=== PATIENT | male | born 1950 | race Caucasian/White ===

== ENCOUNTER 2016-12-27 20:30 | Emergency (ER) | payer MEDICARE, OTHER ==
[~2016-12-27 20:30] MED LIST: ADVAIR HFA1 AE1 IH; ASPIR-LOX325 MG PO; CARVEDILOL12.5 MG PO; CETIRIZINE PO; DOXYCYCLINE 10100 MG PO; FUROSEMIDE40 MG PO; LISINOPRIL10 MG PO; MUCINEX 60600 MG/TA1 PO; OMNICEF 300MG300 MG PO; PREDNISONE10 MG PO; SIMVASTATIN40 MG PO; SPIRIVA HANDIH18 MCG IH; TESSALON P100 MG/CAP PO; VIBRAMYCIN100 MG PO; ZESTRIL 5MG5 MG PO
[2016-12-27] MEDS ORDERED: COUMADIN 1MG1 MG/TAB (20:41)
[2016-12-27] MEDS ORDERED: ELIQUIS5 MG PO (20:42)
[2016-12-27 21:36] VITALS: BP 123/70
== END 2016-12-27 21:36 | disposition home or self-care (01) ==
LOC: ED 20:30
DX: S50.811A Abrasion of right forearm, initial encounter (principal); W50.4XXA Accidental scratch by another person, initial encounter; Z79.01 Long term (current) use of anticoagulants; I48.91 Unspecified atrial fibrillation

== ENCOUNTER 2018-04-11 17:37 | Emergency (ER) | payer MEDICARE, OTHER ==
[~2018-04-11] VITALS: Wt 72.8 kg
[~2018-04-11 17:37] MED LIST changes: +COUMADIN 1MG1 MG/TAB; +ELIQUIS5 MG PO
[2018-04-11] MEDS ORDERED: CARVEDILOL25 MG PO (17:54)
[2018-04-11] MEDS ORDERED: ZESTRIL10 M1 PO (17:56)
[2018-04-11] MEDS ORDERED: LOW DOSE ASPIRI81 MG PO (17:58)
[2018-04-11] MEDS ORDERED: PROAIR HFA0.09 MG/AC IH (17:58)
[2018-04-11 19:37] LABS: HEMATOCRIT 32.2 % (42.0-52.0); HEMOGLOBIN 10.7 g/dL (13.5-18.0); MEAN CELL VOLUME 77 fl (78-100); MEAN CORPUSCULAR HEMOGLOBIN 26 pg (27-31); MEAN CORPUSCULAR HGB CONC 33 g/dL (33-37); MEAN PLATELET VOLUME 9.5 fl (7.4-10.4); PLATELET COUNT 300 K/mm3 (130-400); RED BLOOD COUNT 4.16 M/mm3 (4.20-5.60); RED CELL DISTRIBUTION WIDTH 15.2 % (11.5-14.5); WHITE BLOOD COUNT 11.5 K/mm3 (4.8-10.8)
[2018-04-11 19:50] LABS: LYMPHOCYTE 9 % (20-51); MONOCYTE 7 % (3-10); NEUTROPHILS 82 % (42-75)
[2018-04-11 19:52] LABS: CALCIUM 8.7 mg/dL (8.4-10.2); POTASSIUM 4.3 mmol/L (3.6-5.0)
[2018-04-11 19:56] LABS: URINE APPEARANCE CLEAR; URINE BILIRUBIN NEGATIVE (NEGATIVE); URINE BLOOD NEGATIVE (NEGATIVE); URINE COLOR YELLOW; URINE GLUCOSE NEGATIVE (NEGATIVE); URINE KETONE NEGATIVE (NEGATIVE); URINE LEUKOCYTE ESTERASE TRACE (NEGATIVE); URINE NITRATE NEGATIVE (NEGATIVE); URINE PROTEIN(semi-quant) NEGATIVE (NEGATIVE); URINE UROBILINOGEN NORMAL (NORMAL)
[2018-04-11 19:57] LABS: URINE MUCUS PRESENT (NOT PRESENT)
[2018-04-11 20:05] VITALS: BP 142/69
== END 2018-04-11 20:05 | disposition short-term general hospital (02) ==
LOC: ED 17:37
PROVIDERS: Family Medicine
DX: S72.002A Fracture of unspecified part of neck of left femur, initial encounter for closed fracture (principal); S51.812A Laceration without foreign body of left forearm, initial encounter; W54.1XXA Struck by dog, initial encounter; Y92.009 Unspecified place in unspecified non-institutional (private) residence as the place of occurrence of the external cause; I48.91 Unspecified atrial fibrillation; I25.10 Atherosclerotic heart disease of native coronary artery without angina pectoris; I50.9 Heart failure, unspecified; J44.9 Chronic obstructive pulmonary disease, unspecified; I73.9 Peripheral vascular disease, unspecified; Z79.82 Long term (current) use of aspirin; Z79.899 Other long term (current) drug therapy; Z79.01 Long term (current) use of anticoagulants

== ENCOUNTER → 2018-05-15 | Outpatient (CLI) | payer MEDICARE, OTHER ==
[2018-05-01 12:13] VITALS: BP 169/88
[~2018-05-15] MED LIST changes: +ACETAMINOPHEN325 M1 PO; +B-1100 M1 PO; +BISACODYL10 M1 RC; +CARVEDILOL25 MG PO; +CHILDREN'S ASPI81 M1 PO; +CYCLOBENZAPRINE10 M1 PO; +FLOMAX0.4 MG PO; +FOLIC ACID1 MG PO; +HYDROCODONE BIT1 T44 PO; +IPRATROPIUM BROM3 M1 IH; +LANOXIN125 MCG PO; +LOW DOSE ASPIRI81 MG PO; +MULTIVITAMIN1 SGL PO; +OYSCO 500500 M1 PO; +PANTOPRAZOLE SO40 MG PO; +PREDNISONE20 M1 PO; +PROAIR HFA0.09 MG/AC IH; +SENOKOT NATURA8.6 MG PO; +VITAMIN C500 M7 PO; +ZESTRIL10 M1 PO
[2018-05-15 15:54] LABS: EOS # 0.4 (0.04-0.40); HEMATOCRIT 31.2 % (42.0-52.0); HEMOGLOBIN 10.1 g/dL (13.5-18.0); LYMPH# 0.9 (1.50-4.00); MEAN CELL VOLUME 79 fl (78-100); MEAN CORPUSCULAR HEMOGLOBIN 26 pg (27-31); MEAN CORPUSCULAR HGB CONC 32 g/dL (33-37); MEAN PLATELET VOLUME 9.9 fl (7.4-10.4); MONO # 0.8 (0.20-0.80); NEU # 5.4 (1.40-6.50); PLATELET COUNT 350 K/mm3 (130-400); RED BLOOD COUNT 3.94 M/mm3 (4.20-5.60); RED CELL DISTRIBUTION WIDTH 14.9 % (11.5-14.5); WHITE BLOOD COUNT 7.4 K/mm3 (4.8-10.8)
[2018-05-15 16:07] LABS: ALBUMIN 3.9 g/dL (3.5-5.0); CALCIUM 9.3 mg/dL (8.4-10.2); POTASSIUM 4.5 mmol/L (3.6-5.0); TOTAL BILIRUBIN 0.6 mg/dL (0.2-1.3); TOTAL PROTEIN 7.2 g/dL (6.3-8.2)
[2018-05-15 20:02] LABS: ERYTHROCYTE SEDIMENTATION RATE 23 mm/hr (0-20)
== END ==
LOC: LAB 15:23
PROVIDERS: Internal Medicine
DX: Z12.5 Encounter for screening for malignant neoplasm of prostate (principal); I50.23 Acute on chronic systolic (congestive) heart failure; I10 Essential (primary) hypertension; I48.2 Chronic atrial fibrillation; E78.2 Mixed hyperlipidemia; E61.1 Iron deficiency

== ENCOUNTER → 2018-06-12 | Outpatient (CLI) | payer MEDICARE, OTHER ==
[2018-05-01 12:13] VITALS: BP 169/88
[2018-06-12 16:36] LABS: EOS # 0.3 (0.04-0.40); EOS % 3.8 % (0.0-4.0); HEMATOCRIT 31.2 % (42.0-52.0); HEMOGLOBIN 9.8 g/dL (13.5-18.0); MEAN CELL VOLUME 79 fl (78-100); MEAN CORPUSCULAR HEMOGLOBIN 25 pg (27-31); MEAN CORPUSCULAR HGB CONC 31 g/dL (33-37); MEAN PLATELET VOLUME 9.6 fl (7.4-10.4); MONO # 0.6 (0.20-0.80); NEU # 4.9 (1.40-6.50); PLATELET COUNT 415 K/mm3 (130-400); RED BLOOD COUNT 3.94 M/mm3 (4.20-5.60); RED CELL DISTRIBUTION WIDTH 15.9 % (11.5-14.5); WHITE BLOOD COUNT 6.9 K/mm3 (4.8-10.8)
[2018-06-12 16:43] LABS: ALBUMIN 4.1 g/dL (3.5-5.0); CALCIUM 9.2 mg/dL (8.4-10.2); POTASSIUM 4.8 mmol/L (3.6-5.0); TOTAL BILIRUBIN 0.5 mg/dL (0.2-1.3); TOTAL PROTEIN 7.2 g/dL (6.3-8.2)
== END ==
LOC: LAB 15:32
PROVIDERS: Internal Medicine
DX: I50.23 Acute on chronic systolic (congestive) heart failure (principal); I10 Essential (primary) hypertension; E61.1 Iron deficiency; I48.2 Chronic atrial fibrillation; E78.2 Mixed hyperlipidemia

== ENCOUNTER → 2018-07-31 | Outpatient (CLI) | payer MEDICARE, OTHER ==
[2018-05-01 12:13] VITALS: BP 169/88
[2018-07-31 11:44] LABS: EOS # 0.1 (0.04-0.40); EOS % 1.6 % (0.0-4.0); HEMATOCRIT 27.9 % (42.0-52.0); HEMOGLOBIN 9.1 g/dL (13.5-18.0); LYMPH# 0.9 (1.50-4.00); MEAN CELL VOLUME 89 fl (78-100); MEAN CORPUSCULAR HEMOGLOBIN 29 pg (27-31); MEAN CORPUSCULAR HGB CONC 33 g/dL (33-37); MEAN PLATELET VOLUME 10.1 fl (7.4-10.4); MONO # 0.8 (0.20-0.80); NEU # 5.7 (1.40-6.50); PLATELET COUNT 339 K/mm3 (130-400); RED BLOOD COUNT 3.13 M/mm3 (4.20-5.60); RED CELL DISTRIBUTION WIDTH 19.9 % (11.5-14.5); WHITE BLOOD COUNT 7.6 K/mm3 (4.8-10.8)
[2018-07-31 12:01] LABS: ALBUMIN 4.4 g/dL (3.5-5.0); CALCIUM 9.3 mg/dL (8.4-10.2); POTASSIUM 4.5 mmol/L (3.6-5.0); TOTAL BILIRUBIN 0.5 mg/dL (0.2-1.3)
== END ==
LOC: LAB 10:12
PROVIDERS: Internal Medicine
DX: I50.23 Acute on chronic systolic (congestive) heart failure (principal); I10 Essential (primary) hypertension; I48.2 Chronic atrial fibrillation; E78.2 Mixed hyperlipidemia; E61.1 Iron deficiency

== ENCOUNTER → 2018-09-04 | Outpatient (CLI) | payer MEDICARE, OTHER ==
[2018-05-01 12:13] VITALS: BP 169/88
[2018-09-04 14:18] LABS: HEMATOCRIT 24.9 % (42.0-52.0); MEAN CELL VOLUME 86 fl (78-100); MEAN CORPUSCULAR HEMOGLOBIN 27 pg (27-31); MEAN CORPUSCULAR HGB CONC 31 g/dL (33-37); MEAN PLATELET VOLUME 9.4 fl (7.4-10.4); PLATELET COUNT 348 K/mm3 (130-400); RED BLOOD COUNT 2.91 M/mm3 (4.20-5.60); RED CELL DISTRIBUTION WIDTH 16.5 % (11.5-14.5); WHITE BLOOD COUNT 5.5 K/mm3 (4.8-10.8)
[2018-09-04 14:57] LABS: ALBUMIN 4.2 g/dL (3.5-5.0); CALCIUM 9.5 mg/dL (8.4-10.2); POTASSIUM 4.8 mmol/L (3.6-5.0); TOTAL BILIRUBIN 0.4 mg/dL (0.2-1.3); TOTAL PROTEIN 6.7 g/dL (6.3-8.2)
[2018-09-04 16:32] LABS: HEMOGLOBIN 7.7 g/dL (13.5-18.0)
[2018-09-07 06:25] LABS: HYPOCHROMIA 2+; LYMPHOCYTE 13 % (20-51); MONOCYTE 8 % (3-10); NEUTROPHILS 78 % (42-75)
== END ==
LOC: LAB 13:55
PROVIDERS: Internal Medicine
DX: I11.0 Hypertensive heart disease with heart failure (principal); I50.23 Acute on chronic systolic (congestive) heart failure; I48.2 Chronic atrial fibrillation; E78.2 Mixed hyperlipidemia

== ENCOUNTER 2018-09-22 15:31 | Emergency (ER) | payer MEDICARE, OTHER ==
[~2018-09-22] VITALS: Wt 80.0 kg
[~2018-09-22 15:31] MED LIST changes: -ACETAMINOPHEN325 M1 PO; -ADVAIR HFA1 AE1 IH; -CHILDREN'S ASPI81 M1 PO; +GOOD NEIGHBOR500 M2 PO; +MEDI-FIRST ASP325 MG PO; +RT ADVAIR HFA 1112 G IH; +SIMVASTATIN20 M1 PO; -SIMVASTATIN40 MG PO
[2018-09-22 16:28] LABS: ALBUMIN 4.5 g/dL (3.5-5.0); CALCIUM 9.2 mg/dL (8.4-10.2); MEAN CELL VOLUME 81 fl (78-100); MEAN CORPUSCULAR HEMOGLOBIN 26 pg (27-31); MEAN CORPUSCULAR HGB CONC 32 g/dL (33-37); MEAN PLATELET VOLUME 10.2 fl (7.4-10.4); PLATELET COUNT 298 K/mm3 (130-400); POTASSIUM 5.7 mmol/L (3.6-5.0); RED BLOOD COUNT 2.95 M/mm3 (4.20-5.60); RED CELL DISTRIBUTION WIDTH 16.7 % (11.5-14.5); TOTAL BILIRUBIN 0.6 mg/dL (0.2-1.3); WHITE BLOOD COUNT 10.7 K/mm3 (4.8-10.8)
[2018-09-22 16:44] LABS: D-DIMER 0.78 mg/L FEU (0.15-0.50)
[2018-09-22 16:48] VITALS: BP 79/37
[2018-09-22 17:06] LABS: HEMOGLOBIN 7.6 g/dL (13.5-18.0)
[2018-09-22 17:07] LABS: LYMPHOCYTE 23 % (20-51); MONOCYTE 4 % (3-10); NEUTROPHILS 70 % (42-75)
[2018-09-22] MEDS ORDERED: VITAMIN C PURE500 M1 PO (18:05)
[2018-09-22] MEDS ORDERED: PHARMASSURE FO0.4 MG PO (18:06)
[2018-09-22] MEDS ORDERED: CALCIUM 600600 M2 PO (18:07)
[2018-09-22] MEDS ORDERED: PROAIR HFA0.09 MG/AC IH (18:08)
[2018-09-22] MEDS ORDERED: ROBAXIN500 MG (18:10)
== END 2018-09-22 17:15 | disposition short-term general hospital (02) ==
LOC: ED 15:34
PROVIDERS: Nurse Practitioner Family
DX: I46.9 Cardiac arrest, cause unspecified (principal); D64.9 Anemia, unspecified; I50.1 Left ventricular failure, unspecified; I11.0 Hypertensive heart disease with heart failure; I50.9 Heart failure, unspecified; I42.9 Cardiomyopathy, unspecified; I21.29 ST elevation (STEMI) myocardial infarction involving other sites; J44.9 Chronic obstructive pulmonary disease, unspecified; Z87.891 Personal history of nicotine dependence; Z79.01 Long term (current) use of anticoagulants; Z85.118 Personal history of other malignant neoplasm of bronchus and lung
CPT/HCPCS: J0171; J0282; J0461; J1265; J1940; J2250; J7030; J7040; J7060